=== PATIENT | female | born 1950 | race Caucasian/White ===

== ENCOUNTER 2018-11-21 11:43 | Outpatient (CLI) | payer MEDICARE ==
--- NOTE | 2018-11-21 21:14 | RAD ---
CHEST TWO VIEWS: 11/21/18 The heart is normal in size and the lungs are clear. No lobar consolidation, or effusion was seen. At most, there may be some minor diffuse prominence of the lung markings, a nonspecific finding. Calcif ic changes are seen in the aortic arch. Mild degenerative changes are seen in the spine. IMPRESSION: No definite acute finding. POS: HOME
== END 2018-11-21 11:44 | disposition home or self-care (01) ==
LOC: BURRAD 11:43
PROVIDERS: ATTEND Nurse Practitioner
DX: J41.0 Simple chronic bronchitis (principal)
CPT/HCPCS: 71046

== ENCOUNTER 2019-04-11 13:52 | Outpatient (CLI) | payer MEDICARE ==
--- NOTE | 2019-04-14 07:50 | RAD ---
LEFT KNEE 2 VIEWS: Date: 04/11/19 INDICATION: Left knee osteoarthrosis. COMPARISON: None. FINDINGS: There are marginal osteophytes affecting all major compartments. There is medial femorotibial joint c ompartmental narrowing with mild varus malalignment. There is mild joint capsular distention. IMPRESSION: Moderate to severe osteoarthrosis of the left knee. POS: [facility]
--- NOTE | 2019-04-14 07:50 | RAD ---
RIGHT KNEE 2 VIEWS: Date: 04/11/19 INDICATION: Right knee osteoarthrosis. COMPARISON: None. FINDINGS: There is postsurgical change from an ACL reconstruction. There are mild marginal osteophytes affectin g all major compartments of the right knee. No joint capsular distention is evident. No acute fractur e is demonstrated. IMPRESSION: 1. Postoperative change of prior ACL reconstruction. 2. Mild osteoarthrosis of the right knee. POS: [facility]
== END 2019-04-11 13:53 | disposition home or self-care (01) ==
LOC: BURRAD 13:52
PROVIDERS: ATTEND Internal Medicine Rheumatology
DX: M17.0 Bilateral primary osteoarthritis of knee (principal)

== ENCOUNTER 2019-05-05 17:53 | Outpatient (CLI) | payer MEDICARE ==
--- NOTE | 2019-05-05 21:48 | RAD ---
LEFT HIP TWO VIEWS: 05/05/2019 FINDINGS: No fracture or joint space narrowing is seen. The articular surfaces are smooth. There are no signi ficant arthritic changes. Prominence of the bony ridge around the acetabulum, laterally, is probably not currently significant. IMPRESSION: No acute findings. POS: HOME
--- NOTE | 2019-05-05 21:49 | RAD ---
RIGHT HIP TWO VIEWS: 05/05/2019 COMPARISON: Left hip study. FINDINGS: There are no significant changes between the sides. No fracture, joint space narrowing, or arthritic change is apparent. IMPRESSION: No acute findings. POS: HOME
--- NOTE | 2019-05-05 21:50 | RAD ---
LUMBAR SPINE THREE VIEWS: 05/05/2019 FINDINGS: No fracture or disk space narrowing is seen in the lumbar region. There is evidence of a degenerativ e disk at the T11-T12 level, with disk space narrowing and anterior osteophytes here. The lumbar reg ion is unremarkable for age. Calcification is seen in the aorta and proximal iliac arteries. Some s ort of medical tubing overlies the right flank. IMPRESSION: 1. Degenerative disk disease at T11-T12. 2. Lumbar region unremarkable for age. POS: HOME
== END 2019-05-05 17:54 | disposition home or self-care (01) ==
LOC: BURRAD 17:53
PROVIDERS: ATTEND Family Medicine
DX: M25.551 Pain in right hip (principal); M25.552 Pain in left hip; M54.42 Lumbago with sciatica, left side; M51.34 Other intervertebral disc degeneration, thoracic region
CPT/HCPCS: 72100

== ENCOUNTER 2019-09-16 13:07 | Outpatient (CLI) | payer MEDICARE ==
--- NOTE | 2019-09-18 07:41 | RAD ---
EXAM: 2 views of the left tibia/fibula HISTORY: Leg pain after fall 2 months ago COMPARISON: None FINDINGS: There is no evidence of acute fracture or dislocation. Moderate diffuse soft tissue swellin g is seen. No degenerative changes are seen in the knee or ankle. IMPRESSION: No evidence of acute osseous abnormality.
== END 2019-09-16 13:08 | disposition home or self-care (01) ==
LOC: BURRAD 13:07
PROVIDERS: ATTEND Nurse Practitioner
DX: M79.662 Pain in left lower leg (principal)

== ENCOUNTER 2020-04-14 19:54 | Emergency (ER) | payer MEDICARE ==
[2020-04-14 20:36] LABS: #Basophils 0.1 thou/uL (0.0-0.2); #Lymphocytes 1.8 thou/uL (1.20-3.40); #Monocytes 0.6 thou/uL (0.11-0.59); #Neutrophils 7.6 thou/uL (1.40-6.50); %Basophils 0.6 % (0.0-1.0); %Lymphocytes 18.2 % (21.0-51.0); %Monocytes 6.1 % (0.0-10.0); Hemoglobin 13.1 g/dL (12.0-16.0); Mean Corpuscular HGB CONC 30.5 g/dL (32.0-36.0); Mean Corpuscular Hemoglobin 28.4 pg (27.0-31.0); Mean Corpuscular Volume 93.3 fL (78.0-98.0); Mean Platelet Volume 6.6 fL (7.4-10.4); Platelet Count 296 thou/uL (130-400); RBC Distribution Width 12.6 % (11.5-14.5); White Blood Cell (WBC) Count 10.1 thou/uL (4.8-10.8)
[2020-04-14 20:54] LABS: ALT (SGPT) 25 U/L (8-55); AST (SGOT) 32 U/L (5-34); Albumin 3.9 g/dL (3.4-4.8); Alkaline Phosphatase 44 U/L (40-110); Anion Gap 20 mmol/L (10-20); BUN (Urea Nitrogen) 15 mg/dL (9.8-20.1); Bilirubin, Total 0.5 mg/dL (0.2-1.2); Calc. Creatinine Clearance 0 mL/min (70-130); Calcium 9.2 mg/dL (7.8-10.44); Carbon Dioxide 20 mmol/L (23-31); Chloride 95 mmol/L (98-107); Estimated GFR-MDRD 57; Globulin 3.2 g/dL (2.4-3.5); Glucose 192 mg/dL (80-115); Potassium 4.1 mmol/L (3.5-5.1); Protein, Total 7.1 g/dL (6.0-8.3); Sodium 131 mmol/L (136-145)
[2020-04-14 21:08] LABS: INR-International Normal Ratio 1.1; Prothrombin Time 14.6 sec (12.0-14.7)
[2020-04-14 21:09] LABS: PTT 28.6 sec (22.9-36.1)
[2020-04-14 21:10] LABS: D-Dimer Test 0.48 *mcg/mL (0.27-0.43)
[2020-04-14] MEDS ORDERED: Acetaminophen 325 MG TAB ONE (21:15)
[2020-04-14] MEDS ORDERED: Azithromycin 500 MG VIAL ONE (21:16)
[2020-04-14] MEDS ORDERED: Enoxaparin Sodium 100 MG/ML SYRINGE ONE (21:16)
[2020-04-14] MEDS ORDERED: cefTRIAXone\\ROCEPHIN 2 GM VIAL ONE (21:16)
--- NOTE | 2020-04-14 21:16 | RAD ---
PORTABLE CHEST: 04/14/20 An AP portable film at 2058 is compared with an 08/05/19 study. There is a vague patchy density in th e right base medially. An early infiltrate here is possible. It is more difficult to assess the left base; however, it does not appear entirely clear. I am somewhat suspicious there may be some minimal infiltrate here. The ermelinda seems slightly more prominent today than before. The lung apices are clear. IMPRESSION: Probable patchy infiltrate in the right base and possibly more diffuse findings in the left base. Inf ection, including viral, should be considered. POS: HOME
[2020-04-14] MEDS ORDERED: Sodium Chloride 0.9% 100 ML ONE (21:17)
== END 2020-04-14 22:45 | disposition short-term general hospital (02) ==
LOC: BURERS 19:54
DX: A41.9 Sepsis, unspecified organism (principal); J18.9 Pneumonia, unspecified organism; E11.65 Type 2 diabetes mellitus with hyperglycemia; Z20.828 Contact with and (suspected) exposure to other viral communicable diseases; M79.7 Fibromyalgia; I10 Essential (primary) hypertension; E78.00 Pure hypercholesterolemia, unspecified; E03.9 Hypothyroidism, unspecified; D64.9 Anemia, unspecified; G47.30 Sleep apnea, unspecified; F32.9 Major depressive disorder, single episode, unspecified; F17.210 Nicotine dependence, cigarettes, uncomplicated
CPT/HCPCS: 36415; 36416; 71045; 80053; 83605; 83880; 84484; 85025; 85379; 85610; 85730; 87040; 93005; 94760; 96365; 96367; 96372; J0456; J0696; J1650; J3490

== ENCOUNTER 2022-01-28 11:05 | Emergency (ER) | payer MEDICARE ==
[2022-01-28] MEDS ORDERED: Ibuprofen 800 MG TAB ONE (11:47)
[2022-01-28] MEDS ORDERED: HYDROcodone/Acetaminophen 5/325 mg Tablet ONE (11:47)
== END 2022-01-28 13:15 | disposition home or self-care (01) ==
LOC: BURERS 11:05
DX: M23.92 Unspecified internal derangement of left knee (principal); E03.9 Hypothyroidism, unspecified; I10 Essential (primary) hypertension; E78.00 Pure hypercholesterolemia, unspecified; D64.9 Anemia, unspecified; F17.210 Nicotine dependence, cigarettes, uncomplicated; W18.30XA Fall on same level, unspecified, initial encounter

== ENCOUNTER 2022-02-28 19:48 | Emergency (ER) | payer MEDICARE ==
[2022-02-28] MEDS ORDERED: traMADol HCl 50 MG TAB ONE ×2 (20:14→21:08)
[2022-02-28 20:35] LABS: Bilirubin Negative (Negative); Blood, Urine Negative (Negative); Clarity Clear (Clear); Glucose, Urine (Dipstick) Negative (Negative); Ketone, Urine Negative (Negative); Leukocyte Negative (Negative); Nitrite Negative (Negative); Protein, Urine (Dipstick) Negative (Neg-Trace); pH, Urine 5.5 (5.0-9.0)
== END 2022-02-28 21:11 | disposition home or self-care (01) ==
LOC: BURERS 19:48
DX: S83.92XA Sprain of unspecified site of left knee, initial encounter (principal); S83.91XA Sprain of unspecified site of right knee, initial encounter; S60.211A Contusion of right wrist, initial encounter; I10 Essential (primary) hypertension; E78.5 Hyperlipidemia, unspecified; E03.9 Hypothyroidism, unspecified; E78.00 Pure hypercholesterolemia, unspecified; D64.9 Anemia, unspecified; G47.30 Sleep apnea, unspecified; F17.210 Nicotine dependence, cigarettes, uncomplicated; W18.2XXA Fall in (into) shower or empty bathtub, initial encounter
CPT/HCPCS: 81003

== ENCOUNTER 2022-12-28 15:22 | Inpatient (IN) | payer MEDICARE ==
[2022-12-28 17:21] VITALS: BMI 44.2
[2022-12-28] MEDS ORDERED: HYDROcodone/Acetaminophen 10/325 mg Tablet PO PRN (18:59)
[2022-12-28] MEDS ORDERED: Calcium Carbonate 500 MG ChewTAB PO PRN (18:59)
[2022-12-28] MEDS: Aspirin 81 mg Enteric Coated Tablet PO SCH (19:50)
[2022-12-28] MEDS: diphenhydrAMINE 25 MG CAP PO SCH (19:51)
[2022-12-28] MEDS: HYDROcodone/Acetaminophen 10/325 mg Tablet PO PRN (19:52)
[2022-12-28] MEDS ORDERED: Lisinopril 5 MG TAB PO SCH (21:00)
[2022-12-29] MEDS: HYDROcodone/Acetaminophen 10/325 mg Tablet PO PRN ×3 (02:25→23:08)
[2022-12-29] MEDS ORDERED: [UNRECOGNIZED DRUG - MIXTURE] PO SCH (07:30)
[2022-12-29] MEDS: Aspirin 81 mg Enteric Coated Tablet PO SCH ×2 (08:26→20:38)
[2022-12-29] MEDS: Multivit, Therapeutic 1 TAB PO SCH (08:29)
[2022-12-29] MEDS: Levothyroxine Sodium 112 MCG TAB PO SCH (08:29)
[2022-12-29] MEDS: Fenofibrate Nanocrystallized 145 MG TAB PO SCH (08:29)
[2022-12-29] MEDS ORDERED: Carvedilol 6.25 MG TAB PO SCH (09:00)
[2022-12-29] MEDS: FLUoxetine HCl 10 MG CAP PO SCH (09:57)
[2022-12-29] MEDS ORDERED: HYDROcodone/Acetaminophen 10/325 mg Tablet PO SCH (13:00)
[2022-12-29] MEDS ORDERED: HYDROcodone/Acetaminophen 10/325 mg Tablet PO PRN (15:29)
[2022-12-29] MEDS: Carvedilol 6.25 MG TAB PO SCH (16:52)
[2022-12-29] MEDS: diphenhydrAMINE 25 MG CAP PO SCH (20:38)
[2022-12-30 05:19] LABS: #Eosinphils 0.2 thou/uL (0.0-0.7); #Lymphocytes 1.7 thou/uL (1.20-3.40); #Monocytes 0.5 thou/uL (0.11-0.59); #Neutrophils 2.7 thou/uL (1.40-6.50); %Basophils 0.9 % (0.0-1.0); %Eosinophils 4.4 % (0.0-10.0); %Lymphocytes 32.5 % (21.0-51.0); %Neutrophils 53.2 % (42.0-75.0); Hemoglobin 10.1 g/dL (12.0-16.0); Mean Corpuscular HGB CONC 30.6 g/dL (32.0-36.0); Mean Corpuscular Hemoglobin 28.8 pg (27.0-31.0); Mean Corpuscular Volume 94.1 fl (78.0-98.0); Mean Platelet Volume 7.6 fL (7.4-10.4); Platelet Count 241 10x3/uL (130-400); Red Blood Cell (RBC) Count 3.52 mill/uL (4.20-5.40); White Blood Cell (WBC) Count 5.1 10x3/uL (4.8-10.8)
[2022-12-30 05:33] LABS: Anion Gap 12 mmol/L (10-20); BUN (Urea Nitrogen) 15 mg/dL (9.8-20.1); Calc. Creatinine Clearance 109 mL/min (70-130); Calcium 8.5 mg/dL (7.8-10.44); Carbon Dioxide 27 mmol/L (23-31); Chloride 104 mmol/L (98-107); Estimated GFR 76; Glucose 95 mg/dL (83-110); Potassium 3.9 mmol/L (3.5-5.1); Sodium 139 mmol/L (136-145)
[2022-12-30] MEDS: HYDROcodone/Acetaminophen 10/325 mg Tablet PO PRN ×4 (06:27→23:28)
[2022-12-30] MEDS: Polyethylene Glycol 3350 17 GM Packet PO SCH (09:05)
[2022-12-30] MEDS: FLUoxetine HCl 10 MG CAP PO SCH (09:06)
[2022-12-30] MEDS: Carvedilol 6.25 MG TAB PO SCH ×2 (09:07→17:16)
[2022-12-30] MEDS: Multivit, Therapeutic 1 TAB PO SCH (09:07)
[2022-12-30] MEDS: Fenofibrate Nanocrystallized 145 MG TAB PO SCH (09:09)
[2022-12-30] MEDS: Levothyroxine Sodium 112 MCG TAB PO SCH (09:09)
[2022-12-30] MEDS: Lisinopril 20 MG TAB PO SCH (09:09)
[2022-12-30] MEDS: Aspirin 81 mg Enteric Coated Tablet PO SCH ×2 (09:09→20:29)
[2022-12-30 16:56] LABS: Hemoglobin A1c 5.9 % (4.0-6.0)
[2022-12-30] MEDS: diphenhydrAMINE 25 MG CAP PO SCH (20:29)
[2022-12-31] MEDS: Ibuprofen 800 MG TAB PO PRN ×3 (04:48→22:25)
[2022-12-31] MEDS: Multivit, Therapeutic 1 TAB PO SCH (09:20)
[2022-12-31] MEDS: FLUoxetine HCl 10 MG CAP PO SCH (09:20)
[2022-12-31] MEDS: Carvedilol 6.25 MG TAB PO SCH ×2 (09:21→16:53)
[2022-12-31] MEDS: Fenofibrate Nanocrystallized 145 MG TAB PO SCH (09:21)
[2022-12-31] MEDS: Lisinopril 20 MG TAB PO SCH (09:23)
[2022-12-31] MEDS: Polyethylene Glycol 3350 17 GM Packet PO SCH (09:23)
[2022-12-31] MEDS: Aspirin 81 mg Enteric Coated Tablet PO SCH ×2 (09:23→20:06)
[2022-12-31] MEDS: Levothyroxine Sodium 112 MCG TAB PO SCH (09:23)
[2022-12-31] MEDS: HYDROcodone/Acetaminophen 10/325 mg Tablet PO PRN ×2 (09:24→21:15)
[2022-12-31] MEDS ORDERED: HYDROcodone/Acetaminophen 10/325 mg Tablet PO SCH (15:15)
[2022-12-31] MEDS: diphenhydrAMINE 25 MG CAP PO SCH (20:06)
[2023-01-01] MEDS: HYDROcodone/Acetaminophen 10/325 mg Tablet PO PRN ×4 (04:29→21:23)
[2023-01-01] MEDS: Ibuprofen 800 MG TAB PO PRN (07:40)
[2023-01-01] MEDS: FLUoxetine HCl 10 MG CAP PO SCH (08:34)
[2023-01-01] MEDS: Lisinopril 20 MG TAB PO SCH (08:35)
[2023-01-01] MEDS: Levothyroxine Sodium 112 MCG TAB PO SCH (08:35)
[2023-01-01] MEDS: Polyethylene Glycol 3350 17 GM Packet PO SCH (08:35)
[2023-01-01] MEDS: Multivit, Therapeutic 1 TAB PO SCH (08:35)
[2023-01-01] MEDS: Carvedilol 6.25 MG TAB PO SCH ×2 (08:35→17:23)
[2023-01-01] MEDS: Aspirin 81 mg Enteric Coated Tablet PO SCH ×2 (08:35→21:23)
[2023-01-01] MEDS: Fenofibrate Nanocrystallized 145 MG TAB PO SCH (08:36)
[2023-01-01] MEDS: Ibuprofen 200 MG TAB PO SCH (18:08)
[2023-01-01] MEDS: diphenhydrAMINE 25 MG CAP PO SCH (21:23)
[2023-01-01] MEDS: Famotidine 20 MG TAB PO SCH (21:23)
[2023-01-02] MEDS: Ibuprofen 200 MG TAB PO SCH ×3 (01:51→17:26)
[2023-01-02] MEDS: Famotidine 20 MG TAB PO SCH ×2 (08:24→20:55)
[2023-01-02] MEDS: FLUoxetine HCl 10 MG CAP PO SCH (08:24)
[2023-01-02] MEDS: Multivit, Therapeutic 1 TAB PO SCH (08:24)
[2023-01-02] MEDS: Levothyroxine Sodium 112 MCG TAB PO SCH (08:24)
[2023-01-02] MEDS: Carvedilol 6.25 MG TAB PO SCH ×2 (08:24→17:26)
[2023-01-02] MEDS: Aspirin 81 mg Enteric Coated Tablet PO SCH ×2 (08:25→20:56)
[2023-01-02] MEDS: Lisinopril 20 MG TAB PO SCH (08:25)
[2023-01-02] MEDS: Fenofibrate Nanocrystallized 145 MG TAB PO SCH (08:25)
[2023-01-02] MEDS: HYDROcodone/Acetaminophen 10/325 mg Tablet PO PRN ×3 (08:26→20:56)
[2023-01-02] MEDS: Polyethylene Glycol 3350 17 GM Packet PO SCH (08:34)
[2023-01-02] MEDS: diphenhydrAMINE 25 MG CAP PO SCH (20:56)
[2023-01-03] MEDS: Ibuprofen 200 MG TAB PO SCH ×3 (02:25→17:45)
[2023-01-03] MEDS: HYDROcodone/Acetaminophen 10/325 mg Tablet PO PRN ×3 (02:58→20:54)
[2023-01-03] MEDS: Fenofibrate Nanocrystallized 145 MG TAB PO SCH (09:13)
[2023-01-03] MEDS: Famotidine 20 MG TAB PO SCH ×2 (09:13→20:53)
[2023-01-03] MEDS: Multivit, Therapeutic 1 TAB PO SCH (09:14)
[2023-01-03] MEDS: Carvedilol 6.25 MG TAB PO SCH ×2 (09:14→17:46)
[2023-01-03] MEDS: Levothyroxine Sodium 112 MCG TAB PO SCH (09:14)
[2023-01-03] MEDS: FLUoxetine HCl 10 MG CAP PO SCH (09:14)
[2023-01-03] MEDS: Aspirin 81 mg Enteric Coated Tablet PO SCH ×2 (09:15→20:53)
[2023-01-03] MEDS: Lisinopril 20 MG TAB PO SCH (09:16)
[2023-01-03] MEDS: Polyethylene Glycol 3350 17 GM Packet PO SCH (09:16)
[2023-01-03] MEDS: diphenhydrAMINE 25 MG CAP PO SCH (20:54)
[2023-01-04] MEDS: Ibuprofen 200 MG TAB PO SCH ×3 (02:08→17:30)
[2023-01-04] MEDS: HYDROcodone/Acetaminophen 10/325 mg Tablet PO PRN ×3 (03:34→18:58)
[2023-01-04] MEDS: FLUoxetine HCl 10 MG CAP PO SCH (08:42)
[2023-01-04] MEDS: Levothyroxine Sodium 112 MCG TAB PO SCH (08:43)
[2023-01-04] MEDS: Fenofibrate Nanocrystallized 145 MG TAB PO SCH (08:44)
[2023-01-04] MEDS: Aspirin 81 mg Enteric Coated Tablet PO SCH ×2 (08:51→21:02)
[2023-01-04] MEDS: Carvedilol 6.25 MG TAB PO SCH ×2 (08:51→17:31)
[2023-01-04] MEDS: Famotidine 20 MG TAB PO SCH ×2 (08:53→21:02)
[2023-01-04] MEDS: Multivit, Therapeutic 1 TAB PO SCH (08:53)
[2023-01-04] MEDS: Polyethylene Glycol 3350 17 GM Packet PO SCH (08:53)
[2023-01-04] MEDS: Lisinopril 20 MG TAB PO SCH (08:53)
[2023-01-04] MEDS: diphenhydrAMINE 25 MG CAP PO SCH (21:02)
[2023-01-05] MEDS: Ibuprofen 200 MG TAB PO SCH ×3 (02:18→17:16)
[2023-01-05] MEDS: HYDROcodone/Acetaminophen 10/325 mg Tablet PO PRN ×3 (08:57→20:42)
[2023-01-05] MEDS: FLUoxetine HCl 10 MG CAP PO SCH (08:58)
[2023-01-05] MEDS: Carvedilol 6.25 MG TAB PO SCH ×2 (09:00→17:16)
[2023-01-05] MEDS: Multivit, Therapeutic 1 TAB PO SCH (09:01)
[2023-01-05] MEDS: Aspirin 81 mg Enteric Coated Tablet PO SCH ×2 (09:01→20:43)
[2023-01-05] MEDS: Lisinopril 20 MG TAB PO SCH (09:01)
[2023-01-05] MEDS: Fenofibrate Nanocrystallized 145 MG TAB PO SCH (09:01)
[2023-01-05] MEDS: Famotidine 20 MG TAB PO SCH ×2 (09:02→20:43)
[2023-01-05] MEDS: Levothyroxine Sodium 112 MCG TAB PO SCH (09:02)
[2023-01-05] MEDS: Polyethylene Glycol 3350 17 GM Packet PO SCH (09:11)
[2023-01-05] MEDS: diphenhydrAMINE 25 MG CAP PO SCH (20:43)
[2023-01-06] MEDS: Ibuprofen 200 MG TAB PO SCH ×3 (02:10→18:13)
[2023-01-06] MEDS: HYDROcodone/Acetaminophen 10/325 mg Tablet PO PRN ×3 (08:44→21:33)
[2023-01-06] MEDS: FLUoxetine HCl 10 MG CAP PO SCH (08:45)
[2023-01-06] MEDS: Multivit, Therapeutic 1 TAB PO SCH (08:46)
[2023-01-06] MEDS: Levothyroxine Sodium 112 MCG TAB PO SCH (08:46)
[2023-01-06] MEDS: Aspirin 81 mg Enteric Coated Tablet PO SCH ×2 (08:46→21:31)
[2023-01-06] MEDS: Famotidine 20 MG TAB PO SCH ×2 (08:46→21:31)
[2023-01-06] MEDS: Lisinopril 20 MG TAB PO SCH (08:46)
[2023-01-06] MEDS: Carvedilol 6.25 MG TAB PO SCH ×2 (08:47→18:14)
[2023-01-06] MEDS: Fenofibrate Nanocrystallized 145 MG TAB PO SCH (08:47)
[2023-01-06] MEDS: Polyethylene Glycol 3350 17 GM Packet PO SCH (10:07)
[2023-01-06] MEDS ORDERED: Hydrochlorothiazide 25 MG TAB PO SCH (10:45)
[2023-01-06] MEDS: diphenhydrAMINE 25 MG CAP PO SCH (21:31)
[2023-01-07] MEDS: Ibuprofen 200 MG TAB PO SCH ×2 (02:06→09:52)
[2023-01-07] MEDS: HYDROcodone/Acetaminophen 10/325 mg Tablet PO PRN ×2 (05:16→14:15)
[2023-01-07 05:48] VITALS: TEMP 97.9
[2023-01-07] MEDS ORDERED: Hydrochlorothiazide 25 MG TAB PO SCH (09:00)
[2023-01-07] MEDS: Famotidine 20 MG TAB PO SCH (09:53)
[2023-01-07] MEDS: Carvedilol 6.25 MG TAB PO SCH (09:54)
[2023-01-07] MEDS: Fenofibrate Nanocrystallized 145 MG TAB PO SCH (09:54)
[2023-01-07] MEDS: Multivit, Therapeutic 1 TAB PO SCH (09:54)
[2023-01-07] MEDS: FLUoxetine HCl 10 MG CAP PO SCH (09:55)
[2023-01-07] MEDS: Levothyroxine Sodium 112 MCG TAB PO SCH (09:55)
[2023-01-07] MEDS: Aspirin 81 mg Enteric Coated Tablet PO SCH (09:55)
[2023-01-07 09:58] VITALS: BP 155/64
[2023-01-07] MEDS: Polyethylene Glycol 3350 17 GM Packet PO SCH (09:59)
[2023-01-07] MEDS: Lisinopril 20 MG TAB PO SCH (10:01)
== END 2023-01-07 14:40 | disposition home health service (06) | DRG 561 ==
LOC: BURMED 17:00
PROVIDERS: ADMIT Family Medicine; ATTEND Nurse Practitioner
DX: Z47.1 Aftercare following joint replacement surgery (principal); F31.9 Bipolar disorder, unspecified; E03.9 Hypothyroidism, unspecified; I10 Essential (primary) hypertension; J45.909 Unspecified asthma, uncomplicated; G47.33 Obstructive sleep apnea (adult) (pediatric); Z96.652 Presence of left artificial knee joint; E11.9 Type 2 diabetes mellitus without complications; G89.29 Other chronic pain; Z90.49 Acquired absence of other specified parts of digestive tract; Z98.890 Other specified postprocedural states; Z87.891 Personal history of nicotine dependence; Z88.8 Allergy status to other drugs, medicaments and biological substances
CPT/HCPCS: 36415; 80048; 83036; 85025; J1650

== ENCOUNTER 2024-11-14 10:59 | Emergency (ER) | payer MEDICARE ==
[2024-11-14 11:25] LABS: #Eosinophils 0.1 thou/uL (0.0-0.7); #Lymphocytes 1.9 thou/uL (1.20-3.40); #Monocytes 0.4 thou/uL (0.11-0.59); #Neutrophils 2.5 thou/uL (1.40-6.50); %Basophils 0.9 % (0.0-1.0); %Eosinophils 2.5 % (0.0-10.0); %Lymphocytes 37.5 % (21.0-51.0); %Neutrophils 51.1 % (42.0-75.0); Hematocrit 39.3 % (36.0-47.0); Hemoglobin 12.3 g/dL (12.0-16.0); Mean Corpuscular HGB CONC 31.4 g/dL (32.0-36.0); Mean Corpuscular Hemoglobin 24.6 pg (27.0-31.0); Mean Corpuscular Volume 78.5 fl (78.0-98.0); Mean Platelet Volume 5.8 fL (7.4-10.4); Platelet Count 291 10x3/uL (130-400); RBC Distribution Width 14.1 % (11.5-14.5)
[2024-11-14 11:51] LABS: ALT (SGPT) 24 U/L (Less than 34); AST (SGOT) 25 U/L (11-34); Albumin 3.4 g/dL (3.1-4.5); Alkaline Phosphatase 53 U/L (40-110); Anion Gap 17 mmol/L (10-20); BUN (Urea Nitrogen) 9 mg/dL (9.8-20.1); Bilirubin, Total 0.6 mg/dL (0.3-1.2); Calc. Creatinine Clearance 0 mL/min (70-130); Calcium 9.3 mg/dL (7.8-10.44); Carbon Dioxide 26 mmol/L (23-31); Chloride 106 mmol/L (98-107); Estimated GFR 78; Globulin 2.8 g/dL (2.4-3.5); Glucose 159 mg/dL (83-110); Protein, Total 6.2 g/dL (5.8-8.1); Sodium 145 mmol/L (136-145)
[2024-11-14 11:53] LABS: Platelet Adequacy Comment Appears Adequate
[2024-11-14 11:56] LABS: Troponin I Less than 0.010 ng/mL (< 0.028)
== END 2024-11-14 13:38 | disposition home or self-care (01) ==
LOC: BURERS 10:59
DX: R06.02 Shortness of breath (principal); J44.9 Chronic obstructive pulmonary disease, unspecified; I10 Essential (primary) hypertension; E03.9 Hypothyroidism, unspecified; M79.7 Fibromyalgia; F17.210 Nicotine dependence, cigarettes, uncomplicated; I45.10 Unspecified right bundle-branch block
CPT/HCPCS: 71275; 80053; 83880; 84484; 85025; 93005